=== PATIENT | female | born 1970 | race Caucasian/White ===

== ENCOUNTER 2020-09-21 09:40 | Day surgery (SDC) | payer BC ==
[2020-09-20 10:04] LABS: BASOPHILS ABSOLUTE AUTO 0.05 K/mm3 (0.00-0.23); BASOPHILS PERCENT AUTO 1 % (0-2); EOSINOPHILS ABSOLUTE AUTO 0.08 K/mm3 (0.00-0.68); EOSINOPHILS PERCENT AUTO 1 % (0-6); Hematocrit 31.7 % (33.0-51.0); Hemoglobin 9.7 g/dL (11.5-16.0); IMMATURE GRAN ABSOLUTE AUTO 0.02 K/mm3 (0.00-0.10); IMMATURE GRAN PERCENT AUTO 0 % (0-1); LYMPHOCYTES ABSOLUTE AUTO 2.77 K/mm3 (0.84-5.20); LYMPHOCYTES PERCENT AUTO 30 % (21-46); MONOCYTES ABSOLUTE AUTO 0.52 K/mm3 (0.16-1.47); MONOCYTES PERCENT AUTO 6 % (4-13); Mean Corpuscular HGB 25.2 pg (26.0-34.0); Mean Corpuscular HGB Conc 30.6 g/dL (31.5-36.5); Mean Corpuscular Volume 82 fL (80-100); Mean Platelet Volume 10.2 fL (9.1-12.4); NEUTROPHILS ABSOLUTE AUTO 5.69 K/mm3 (1.96-9.15); NEUTROPHILS PERCENT AUTO 62 % (41-73); Platelet Count 414 K/mm3 (150-400); RDW Coefficient Variation 15.1 % (11.7-14.2); RDW Standard Deviation 45.3 fL (35.1-46.3); Red Blood Cell Count 3.85 M/mm3 (3.80-5.20); White Blood Cell Count 9.13 K/mm3 (4.00-11.30)
[~2020-09-21] VITALS: Ht 157.5 cm; Wt 66.7 kg
[~2020-09-21 09:40] MED LIST: ADVIL200 MG PO; BENADRYL25 MG PO; CYCL10 PO; EC-NAPROXEN375 MG PO; MIRENA1 EAC1; VALACYCLOVIR500 M1 PO
--- NOTE | 2020-09-21 10:16 | NUR ---
Ambulatory in Day Surgery History, Chart, Medications and Allergies reviewed before start of procedure. Lungs clear T/O to Auscultation. Pre-Op teaching done. Pt verbalizes understanding.
--- NOTE | 2020-09-21 17:06 | NUR ---
Shift summary Patient had robotic total lap hyster. Lap sites CDI x4 with Dermabond. Scant amount red to kandace pad. Edwards catheter patent and draining clear yellow urine. VSS. Call light within patient reach.
--- NOTE | 2020-09-22 05:01 | NUR ---
SHIFT SUMMARY: YISEL IS A&OX4. VSS, NO ACUTE EVENTS OVERNIGHT. MURILLO OUT THIS AM. TIERA PAD WITH SCANT DRAINAGE. LAP SITES X 4 C/D&I WITH DERMABOND. SHE IS TOLERATING PO INTAKE WELL. SHE REPORTS ADEQUATE PAIN CONTROL WITH 2 TABLETS OF PERCOCET. IV X 2 PATENT, SALINE LOCKED. SHE USES THE CALL LIGHT APPROPRIATELY. SHE IS A STANDBY ASSIST TO THE BATHROOM. SHE REPORTS THAT THE K-PAD HELPS TO ALLEIVATE HER DISCOMFORT. SHE HAS HAD GOOD URINE OUTPUT DURING THE NIGHT. SHE IS LYING IN BED WITH HER CALL LIGHT IN REACH. WILL REPORT TO DAY SHIFT RN.
[2020-09-22 05:21] LABS: BASOPHILS ABSOLUTE AUTO 0.02 K/mm3 (0.00-0.23); BASOPHILS PERCENT AUTO 0 % (0-2); EOSINOPHILS ABSOLUTE AUTO 0.02 K/mm3 (0.00-0.68); EOSINOPHILS PERCENT AUTO 0 % (0-6); Hematocrit 27.7 % (33.0-51.0); Hemoglobin 8.6 g/dL (11.5-16.0); IMMATURE GRAN ABSOLUTE AUTO 0.04 K/mm3 (0.00-0.10); IMMATURE GRAN PERCENT AUTO 0 % (0-1); LYMPHOCYTES ABSOLUTE AUTO 1.86 K/mm3 (0.84-5.20); LYMPHOCYTES PERCENT AUTO 14 % (21-46); MONOCYTES ABSOLUTE AUTO 0.93 K/mm3 (0.16-1.47); MONOCYTES PERCENT AUTO 7 % (4-13); Mean Corpuscular HGB 25.3 pg (26.0-34.0); Mean Corpuscular Volume 82 fL (80-100); Mean Platelet Volume 10.2 fL (9.1-12.4); NEUTROPHILS ABSOLUTE AUTO 10.88 K/mm3 (1.96-9.15); NEUTROPHILS PERCENT AUTO 79 % (41-73); Platelet Count 341 K/mm3 (150-400); RDW Coefficient Variation 15.3 % (11.7-14.2); RDW Standard Deviation 45.7 fL (35.1-46.3); White Blood Cell Count 13.75 K/mm3 (4.00-11.30)
--- NOTE | 2020-09-22 09:42 | NUR ---
09/22/20 0942 Shaila Mendoza VERIFICTIONS: EDIT CHART.
[2020-09-22] MEDS ORDERED: PROM25 PO (11:54)
[2020-09-22] MEDS ORDERED: IBU800 MG PO (11:55)
[2020-09-22] MEDS ORDERED: Percocet 5-3251 EACH PO (11:55)
[2020-09-22] MEDS ORDERED: DOCU100 PO (11:56)
[2020-09-22] MEDS ORDERED: DULCOLAX400 MG/5 M PO (11:56)
[2020-09-22] MEDS ORDERED: SIME80CH PO (11:57)
[2020-09-22] MEDS ORDERED: SENN187 PO (11:57)
--- NOTE | 2020-09-22 13:27 | NUR ---
Discharge summary Patient discharged home. IV out. Discharge instructions given, explained and signed. Prescription given to patient. Patient denied questions or concerns at discharge. Patient to follow up with Dr. Sanchez. Patient left unit via wheelchair escort.
== END 2020-09-22 13:21 | disposition home or self-care (01) ==
LOC: ORSCMMR 09:40 → SURS 15:06
PROVIDERS: Obstetrics & Gynecology
PROC: 0UT94ZZ Resection of Uterus, Percutaneous Endoscopic Approach (ICD-10-PCS; principal; 2020-09-21 11:00)
PROC: 0UT74ZZ Resection of Bilateral Fallopian Tubes, Percutaneous Endoscopic Approach (ICD-10-PCS; principal; 2020-09-21 11:00)
PROC: 8E0W4CZ Robotic Assisted Procedure of Trunk Region, Percutaneous Endoscopic Approach (ICD-10-PCS; principal; 2020-09-21 11:00)
DX: N92.0 Excessive and frequent menstruation with regular cycle (principal); D25.9 Leiomyoma of uterus, unspecified; D25.0 Submucous leiomyoma of uterus; D50.9 Iron deficiency anemia, unspecified; E78.5 Hyperlipidemia, unspecified; Z87.891 Personal history of nicotine dependence; Z79.899 Other long term (current) drug therapy
CPT/HCPCS: 58573; S2900; 36415; 84702; 85025; 86850; 86900; 86901; 88307; A9270; J0690; J1100; J1885; J2270; J2405; J2704; J3010; J7120

== ENCOUNTER 2025-07-07 06:05 | Day surgery (SDC) | payer BC ==
[~2025-07-07] VITALS: Ht 154.9 cm; Wt 65.5 kg
[2025-07-07] VITALS (7 sets, daily range): BP systolic 105–113; BP diastolic 60–71
[~2025-07-07 06:05] MED LIST changes: +ACET325 PO; +DOCU100 PO; +DULCOLAX400 MG/5 M PO; +IBUP200 PO; +PROM25 PO; +Percocet 5-3251 EACH PO; +SENN187 PO; +SIME80CH PO
[2025-07-07] MEDS ORDERED: CeFAZolin Sodium 2,000 MG in NS 100 ML IV SCH (06:20)
[2025-07-07] MEDS ORDERED: CeFAZolin Sodium 2,000 MG VIAL ONE (06:45)
[2025-07-07] MEDS ORDERED: Bupivacaine 0.5% HCl 5 MG/ML 30MLVIAL ONE (07:00)
[2025-07-07] MEDS ORDERED: FentaNYL Citrate 50 MCG/ML 2 ML Injection ONE (07:21)
[2025-07-07] MEDS ORDERED: Ondansetron HCl 2 MG / ML 2ML Vial ONE (07:26)
[2025-07-07] MEDS ORDERED: Dexamethasone Sod Phos 10 MG/ML 1ML VIAL ONE (07:26)
[2025-07-07] MEDS ORDERED: Metoclopramide HCl 5MG / ML 2ML Vial IV PRN (07:40)
[2025-07-07] MEDS ORDERED: FentaNYL Citrate 50 MCG/ML 2 ML Injection IV PRN ×2 (07:40)
[2025-07-07] MEDS ORDERED: HYDROmorphone HCl/Pf 1MG SYR IV PRN ×2 (07:40)
[2025-07-07] MEDS ORDERED: ePHEDrine Sulfate 50 MG/ML 1ML Injection ONE (07:46)
[2025-07-07] MEDS ORDERED: OxyCODONE 5 mg/Acetamin 325 mg TABLET PO PRN (08:40)
== END 2025-07-07 09:18 | disposition home or self-care (01) ==
LOC: ORSCMMR 06:05 → ORD 07:30 → ORSCMMR 09:18
PROVIDERS: Surgery
PROC: 0JBM0ZX Excision of Left Upper Leg Subcutaneous Tissue and Fascia, Open Approach, Diagnostic (ICD-10-PCS; principal; 2025-07-07 07:30)
DX: D17.24 Benign lipomatous neoplasm of skin and subcutaneous tissue of left leg (principal)
CPT/HCPCS: 88304; J0690; J1100; J2405; J2704; J3010; J7120